=== PATIENT | female | born 1985 | race American Indian/Alaskan Native ===

== ENCOUNTER 2017-06-13 06:47 | Inpatient (IN) | payer MEDICAID ==
[2017-06-02 13:48] VITALS: BMI 32.1
[2017-06-13] MEDS ORDERED: ceFAZolin IV 2 gm in Dextrose 0 GM/0 ML BAG IVPB ONE (07:25)
[2017-06-13] MEDS ORDERED: Vasopressin 20 Units/ml Inj ONE (07:25)
[2017-06-13] MEDS ORDERED: Midazolam 2 MG/2 ML VIAL ONE (07:46)
[2017-06-13] MEDS ORDERED: Propofol 10 mg/ml Inj (20 ML) ONE ×2 (07:47→09:01)
[2017-06-13] MEDS ORDERED: Phenylephrine 10 mg/ml Inj ONE (07:49)
[2017-06-13] MEDS ORDERED: ePHEDrine 50 mg/ml Inj ONE (07:49)
[2017-06-13] MEDS ORDERED: Lactated Ringer's 1,000 ML IV ONE ×3 (07:50→11:50)
[2017-06-13] MEDS ORDERED: cefOXitin IV 2 gm in Dextrose 2 GM/50 ML BAG IVPB ONE (08:01)
[2017-06-13] MEDS ORDERED: Neostigmine Methylsulfate 3mg/3ml Syringe IV ONE (08:59)
[2017-06-13] MEDS ORDERED: Bacitracin Ointment 30 GM TUBE ONE (09:22)
[2017-06-13] MEDS: HYDROmorphone 0.5 mg/0.5 ml ISec IVP PRN ×3 (09:55→11:15)
[2017-06-13] MEDS ORDERED: HYDROmorphone 0.5 mg/0.5 ml ISec ONE (09:56)
[2017-06-13] MEDS ORDERED: Morphine Monoject Barrel PCA 1mg/ml IV PRN (10:02)
[2017-06-13] MEDS ORDERED: DiphenhydrAMINE 50 mg/ml Inj IVP PRN (10:02)
[2017-06-13] MEDS ORDERED: Naloxone 0.4 mg/ml Inj (Adult) IVP PRN (10:02)
[2017-06-13] MEDS ORDERED: Lactated Ringer's 1,000 ML IV SCH (10:30)
[2017-06-13] MEDS: cefOXitin IV 2 gm in Dextrose 2 GM/50 ML BAG IVPB SCH (17:58)
[2017-06-14] MEDS: cefOXitin IV 2 gm in Dextrose 2 GM/50 ML BAG IVPB SCH (01:07)
--- NOTE | 2017-06-14 06:29 | OP ---
PROCEDURE DATE: 06/13/2017 PREOPERATIVE DIAGNOSES: Fibroid uterus and menorrhagia. POSTOPERATIVE DIAGNOSES: Fibroid uterus and menorrhagia. PROCEDURE: Exploratory laparotomy and myomectomy. FINDINGS: Multi-fibroid uterus, 18-week size. TYPE OF ANESTHESIA: General. TRAINING AND DEVELOPMENT SPECIALIST: Dr. Jean. DESCRIPTION OF PROCEDURE: After the risks, benefits, and alternatives of the planned procedures, including but not limited to infection, hemorrhage, deep vein thrombosis, atelectasis, pneumonia, pulmonary embolism, damage to the bladder, damage to the ureter, renal insufficiency, renal failure, wound infection, wound dehiscence, incisional hernia, keloid formation, damage to large and small intestines, damage to inferior vena cava and aorta requiring extensive repair, anesthesia complications, electrolyte imbalance, possibility of and other complications that were discussed, but are not listed above, have been explained to the patient and all her questions answered and informed consent was obtained. Risk of recurrence was also discussed with the patient. The patient was taken to the operating room in a stable condition. Under a suitable level of general anesthesia, she was prepped and draped in a sterile fashion after having been placed in a supine position. The abdomen was entered through a Pfannenstiel-type incision and carried through the subcutaneous tissues to the fascia. Fascia was opened transversely and dissected off the rectus abdominis musculature. The rectus abdominis musculature was then in the midline to remove the parietal peritoneum, which was entered sharply and incised superiorly and inferiorly. Posterior and anterior schneider of the uterus were then infiltrated using Pitressin. A longitudinal incision was made over the posterior wall of the uterus and a single intramural myoma was enucleated and submitted for pathology. There was no entry into the endometrial cavity. Excision site was closed in four layers with the first three layers being interrupted layers using 0 Vicryl suture, and the superficial myometrium is also being closed using 0 Vicryl suture in a baseball stitch fashion. Hemostasis was good. An anterior fundal incision was then made, through which a total of 5 intramural myomas were enucleated and submitted for pathology. Again, there was no entry into the endometrial cavity. The excision site was closed in four layers with the first three layers being interrupted layers using 0 Vicryl suture, and the superficial myometrium is also being closed using 0 Vicryl suture in a baseball stitch fashion. Hemostasis was good. At the end of the procedure, peritoneal cavity was irrigated using copious amounts of saline. Saline was evacuated. Tisseel was applied to the incision site with good hemostasis. Abdomen was then closed in layers with 0 Chromic to the parietal peritoneum, rectus muscles were reapproximated using interrupted sutures of 0 Chromic, fascia was reapproximated using interrupted sutures of 0 Vicryl, and the initial skin incision was reapproximated using 4-0 Vicryl in a subcuticular fashion. Estimated blood loss for the procedure was 150 mL. Pad, needle, and instrument counts were correct x2. There were no complications. Renee Carranza MD
[2017-06-14 08:27] LABS: HEMATOCRIT 32.9 % (34.0-47.0); MEAN CELL VOLUME 93.6 fL (81.0-99.0); MEAN CORPUSCULAR HEMOGLOBIN 30.8 pg (27.0-31.0); MEAN CORPUSCULAR HGB CONC 32.9 g/dL (33.0-37.0); MEAN PLATELET VOLUME 8.8 fL (7.2-11.7); RED CELL DISTRIBUTION WIDTH 12.4 % (11.5-14.5); WHITE BLOOD COUNT 14.9 K/uL (4.8-10.8)
[2017-06-14] MEDS ORDERED: Enoxaparin 40 mg Syringe SC SCH (09:33)
[2017-06-14] MEDS: Simethicone 80 mg Chewtab PO SCH ×2 (11:40→17:51)
[2017-06-14] MEDS: Oxycodone/Acetaminophen 5/325 mg Tab PO PRN ×2 (11:43→18:21)
[2017-06-14 16:25] VITALS: BP 121/76; PULSE 92; RESP 20; TEMP 97.6; O2SAT 97
== END 2017-06-14 20:30 | disposition home or self-care (01) | DRG 359 ==
LOC: C.9S 06:47 → C.4M 10:04
PROVIDERS: ADMIT Obstetrics & Gynecology Reproductive Endocrinology; ATTEND Obstetrics & Gynecology Reproductive Endocrinology
PROC: 0UB90ZZ Excision of Uterus, Open Approach (ICD-10-PCS; principal; 2017-06-13 07:45)
DX: D25.1 Intramural leiomyoma of uterus (principal); N92.0 Excessive and frequent menstruation with regular cycle